=== PATIENT | female | born 1940 | race Caucasian/White ===

== ENCOUNTER 2017-07-17 09:33 | Outpatient (CLI) | payer MEDICARE ==
--- NOTE | 2017-07-17 12:33 | RAD ---
UPPER GI AIR CONTRAST: History: Abdominal pain. Hiatal hernia. FINDINGS: Air contrast and single column barium evaluation shows a large hiatal hernia with approximately one-h alysha of the stomach above the level of diaphragm. A large amount of gastroesophageal reflux is apparen t. No focal filling defects are apparent. Duodenum has a normal appearance. IMPRESSION: Large hiatal hernia. Large amount of gastroesophageal reflux. POS: [facility]
== END 2017-07-17 09:34 | disposition home or self-care (01) ==
LOC: RAD 09:33
PROVIDERS: ATTEND Internal Medicine
DX: K44.9 Diaphragmatic hernia without obstruction or gangrene (principal); K21.9 Gastro-esophageal reflux disease without esophagitis
CPT/HCPCS: 74247

== ENCOUNTER → 2023-05-20 | Day surgery (SDC) | payer MEDICARE | LOC: SDC 14:09 | PROVIDERS: ATTEND Internal Medicine | PROC: 4A0B88Z Measurement of Gastrointestinal Motility, Via Natural or Artificial Opening Endoscopic (ICD-10-PCS; principal; 2023-05-20) | DX: K44.9 Diaphragmatic hernia without obstruction or gangrene (principal); Z88.2 Allergy status to sulfonamides | CPT/HCPCS: 91010 ==

== ENCOUNTER 2023-07-23 14:54 | Outpatient (CLI) | payer MEDICARE ==
[2023-07-23 15:59] LABS: #Eosinphils 0.1 10x3/uL (0.0-0.5); #Monocytes 0.4 10x3/uL (0.0-1.1); #Neutrophils 3.4 10x3/uL (1.5-8.4); %Basophils 0.6 % (0.0-2.0); %Eosinophils 1.7 % (0.0-6.0); %Lymphocytes 25.9 % (18.0-47.0); %Neutrophils 64.6 % (40.0-75.0); Hematocrit 42.3 % (34.9-44.5); Hemoglobin 14.6 g/dL (12.0-15.5); Mean Corpuscular HGB CONC 34.5 g/dL (32.0-36.0); Mean Corpuscular Hemoglobin 32.7 pg (27.0-33.0); Mean Corpuscular Volume 94.6 fl (81.6-98.3); Mean Platelet Volume 10.8 fl (7.4-10.4); Platelet Count 193 10x3/uL (150-450); RBC Distribution Width 14.4 % (11.5-14.5); Red Blood Cell (RBC) Count 4.47 10x6/uL (3.90-5.03); White Blood Cell (WBC) Count 5.3 10x3/uL (3.5-10.5)
[2023-07-23 16:39] LABS: Anion Gap 11 mmol/L (10-20); BUN (Urea Nitrogen) 18 mg/dL (9.8-20.1); Calc. Creatinine Clearance 0 mL/min (70-130); Calcium 9.3 mg/dL (7.8-10.44); Carbon Dioxide 28 mmol/L (23-31); Chloride 105 mmol/L (98-107); Estimated GFR 64; Glucose 103 mg/dL (83-110); Potassium 3.6 mmol/L (3.5-5.1); Sodium 140 mmol/L (136-145)
== END 2023-07-23 14:55 | disposition home or self-care (01) ==
LOC: LABBT 14:54
PROVIDERS: ATTEND Specialist
DX: Z01.818 Encounter for other preprocedural examination (principal); K44.9 Diaphragmatic hernia without obstruction or gangrene; J98.11 Atelectasis; M41.9 Scoliosis, unspecified
CPT/HCPCS: 71046; 80048; 85025; 93005; 93010

== ENCOUNTER 2023-07-25 07:35 | Observation (INO) | payer MEDICARE ==
[2023-07-25] MEDS ORDERED: Ketorolac Tromethamine 30 MG (1 mL) VIAL ONE (07:55)
[2023-07-25] MEDS ORDERED: Acetaminophen 500 MG TAB ONE (07:56)
[2023-07-25] MEDS ORDERED: Sodium Chloride 0.9% 100 ML ONE (07:56)
[2023-07-25] MEDS ORDERED: CEFAZOLIN 2 GM VIAL ONE (07:56)
[2023-07-25] MEDS ORDERED: EPINEPHrine 1 MG/ML VIAL ONE (08:01)
[2023-07-25] MEDS ORDERED: Bupivacaine 0.25% HCL 30 ML VIAL ONE (08:01)
[2023-07-25] MEDS ORDERED: Lidocaine 1% PF 5 ML VIAL ONE (08:15)
[2023-07-25] MEDS ORDERED: fentaNYL PF 100 MCG/2 ML SYRINGE ONE (08:15)
[2023-07-25] MEDS ORDERED: Rocuronium Bromide 10 MG/ML (10ML VIAL) ONE (08:15)
[2023-07-25] MEDS ORDERED: PROPOFOL 20 ML ONE (08:15)
[2023-07-25] MEDS ORDERED: Dexamethasone 20 MG/5 ML VIAL ONE (08:49)
[2023-07-25] MEDS ORDERED: ePHEDrine Sulfate 50 MG/10 ML VIAL ONE (08:53)
[2023-07-25] MEDS ORDERED: Labetalol HCl 100 MG/20 ML VIAL ONE (09:34)
[2023-07-25] MEDS ORDERED: PHENYLEPHRINE-NS 100 MCG/ML 10 ML SYRINGE ONE (10:05)
[2023-07-25] MEDS ORDERED: Ondansetron PF 4 MG/2 ML Vial ONE (10:19)
[2023-07-25] MEDS ORDERED: SUGAMMADEX SODIUM 200 MG/2 ML VIAL ONE (10:19)
[2023-07-25] MEDS ORDERED: Promethazine HCl 25 MG/ML VIAL IM PRN ×2 (10:26→10:47)
[2023-07-25] MEDS ORDERED: Ondansetron HCl/PF 4 MG/2 ML Vial IVP PRN (10:26)
[2023-07-25] MEDS ORDERED: Mag-Al 1200 mg/1200 mg/30 ML UDCUP PO PRN (10:47)
[2023-07-25] MEDS ORDERED: Ondansetron PF 4 MG/2 ML Vial IVP PRN (10:47)
[2023-07-25] MEDS ORDERED: hydrALAZINE 20 MG/ML VIAL SLOW IVP PRN (10:47)
[2023-07-25] MEDS ORDERED: Dextrose 5% in Water 1,000 ML IV PRN (10:47)
[2023-07-25] MEDS ORDERED: Ipratropium/Albuterol 3 ML NEB NEB PRN (10:47)
[2023-07-25] MEDS ORDERED: Dextrose 50% Abboject 50 ML SYRINGE SLOW IVP PRN (10:47)
[2023-07-25] MEDS ORDERED: Morphine 4 MG/ML VIAL SLOW IVP PRN (10:47)
[2023-07-25] MEDS ORDERED: Morphine 2 MG/ML VIAL SLOW IVP PRN (10:47)
[2023-07-25] MEDS ORDERED: Glucagon 1 MG/ML KIT IM PRN (10:47)
[2023-07-25] MEDS ORDERED: HYDROcodone/Acetaminophen 10/325 mg Tablet PO PRN (10:47)
[2023-07-25] MEDS ORDERED: Calcium Carbonate 500 MG ChewTAB PO PRN (10:47)
[2023-07-25] MEDS ORDERED: fentaNYL 50 mcg/mL 1 mL Vial ONE (11:39)
[2023-07-25 12:28] VITALS: BMI 25.2
[2023-07-25] MEDS: D5 1/2 NS w/20 mEq KCL 1,000 ML IV SCH (13:52)
[2023-07-25] MEDS: Ketorolac Tromethamine 30 MG (1 mL) VIAL IVP SCH ×2 (13:52→17:45)
[2023-07-25] MEDS: Losartan 25 MG TAB PO SCH (20:25)
[2023-07-25] MEDS ORDERED: Famotidine 20 MG TAB PO SCH (21:00)
[2023-07-25] MEDS ORDERED: Sertraline 25 MG TAB PO SCH (21:00)
[2023-07-25] MEDS ORDERED: Simvastatin 10 MG TAB PO SCH (21:00)
[2023-07-25] MEDS ORDERED: traZODone HCl 50 MG TAB PO SCH (21:00)
[2023-07-25] MEDS ORDERED: Famotidine/PF 20 mg/2ml Vial SLOW IVP SCH (21:00)
[2023-07-25] MEDS ORDERED: Enoxaparin 30 MG (0.3 mL) SYRINGE SC SCH (21:00)
[2023-07-26] MEDS: D5 1/2 NS w/20 mEq KCL 1,000 ML IV SCH (00:38)
[2023-07-26] MEDS: Ketorolac Tromethamine 30 MG (1 mL) VIAL IVP SCH ×3 (00:38→12:20)
[2023-07-26 05:37] LABS: #Monocytes 0.7 thou/uL (0.11-0.59); #Neutrophils 5.9 thou/uL (1.40-6.50); %Lymphocytes 12.8 % (21.0-51.0); %Monocytes 8.8 % (0.0-10.0); %Neutrophils 78.1 % (42.0-75.0); Hematocrit 34.7 % (36.0-47.0); Hemoglobin 11.5 g/dL (12.0-16.0); Mean Corpuscular HGB CONC 33.1 g/dL (32.0-36.0); Mean Corpuscular Hemoglobin 32.1 pg (27.0-31.0); Mean Corpuscular Volume 96.9 fl (78.0-98.0); Mean Platelet Volume 11.1 fL (7.4-10.4); Platelet Count 147 10x3/uL (130-400); RBC Distribution Width 14.5 % (11.5-14.5); Red Blood Cell (RBC) Count 3.58 mill/uL (4.20-5.40); White Blood Cell (WBC) Count 7.5 10x3/uL (4.8-10.8)
[2023-07-26] MEDS ORDERED: Levothyroxine Sodium 75 MCG TAB PO SCH (06:00)
[2023-07-26 06:30] LABS: Anion Gap 12 mmol/L (10-20); BUN (Urea Nitrogen) 9 mg/dL (9.8-20.1); Calc. Creatinine Clearance 56 mL/min (70-130); Calcium 8.1 mg/dL (7.8-10.44); Carbon Dioxide 23 mmol/L (23-31); Chloride 108 mmol/L (98-107); Estimated GFR 87; Glucose 162 mg/dL (83-110); Potassium 3.6 mmol/L (3.5-5.1); Sodium 139 mmol/L (136-145)
[2023-07-26] MEDS: Losartan 25 MG TAB PO SCH (08:16)
[2023-07-26] MEDS ORDERED: D5 1/2 NS w/20 mEq KCL 1,000 ML IV SCH (08:47)
[2023-07-26 08:57] VITALS: BP 149/79; TEMP 98.3
[2023-07-26] MEDS ORDERED: Fluticasone Propionate Nasal Spray 16 gm Bottle NASAL SCH (09:00)
[2023-07-26] MEDS ORDERED: Famotidine 20 MG TAB PO SCH (09:00)
[2023-07-26] MEDS ORDERED: Metoprolol Tartrate 25 MG TAB PO SCH (09:00)
== END 2023-07-26 13:26 | disposition home or self-care (01) ==
LOC: SDC 07:35 → MSONC 12:27
PROVIDERS: ADMIT Specialist; ATTEND Specialist
PROC: 0DV44ZZ Restriction of Esophagogastric Junction, Percutaneous Endoscopic Approach (ICD-10-PCS; principal; 2023-07-25)
DX: K44.9 Diaphragmatic hernia without obstruction or gangrene (principal); K56.2 Volvulus; Z88.2 Allergy status to sulfonamides; Z98.890 Other specified postprocedural states
CPT/HCPCS: 43280; 80048; 85025; C1713 ×2; C1776 ×2; J0171; J3010; 36415; J0665; J1100; J1650; J1885; J2405; J2704; J3480; J3490